=== PATIENT | male | born 1945 | race Caucasian/White ===

== ENCOUNTER → 2018-01-10 17:39 | Outpatient (CLI) | payer MEDICARE, MEDICAID, SELFPAY ==
--- NOTE | 2018-01-10 | DI.MRI.S_ITS ---
PROCEDURE: MR LUMBAR SPINE WO/W CON INDICATIONS: BACK PAIN TECHNIQUE: Noncontrast sagittal T1 spin echo and T2 fast spin echo, sagittal STIR, axial T1 and T2 fast spin echo through the lumbar spine. In cases with scoliosis, additional coronal T2 fast spin echo may be performed. After the administration of contrast, sagittal and axial T1 spin echo with fat saturation through the lumbar spine. COMPARISON: None. FINDINGS: Image quality: Excellent. Alignment and curvature: No plain films are available for comparison, for numbering purposes. Thus, for the purposes of this examination, 5 lumbar type vertebral bodies will be presumed, with a transitional element at S1, as denoted on the montage panel. This should be confirmed and correlated with plain films, prior to any lumbar spinal intervention. Marrow: Marrow is of normal overall signal. No acute vertebral body compression fractures. No suspicious marrow enhancement. There is a nonenhancing septated cystic focus within the right posterior L4 vertebral body. There is mild reactive signal within the endplates adjacent to theL3-L4, L4-L5, and L5-S1 intervertebral discs. Spinal cord: Conus medullaris terminates at the L1-L2 disc space level. Visualized spinal cord demonstrates normal signal, without suspicious enhancement. Paraspinous soft tissues: No paravertebral masses or abnormal enhancement. L1-L2: Mild facet hypertrophy. No significant canal, nor foraminal stenosis. L2-L3: Mild facet hypertrophy. No significant canal, nor foraminal stenosis. L3-L4: Mild disc height loss and desiccation. Mild diffuse disc bulge with superimposed left far lateral disc protrusion. Moderate facet hypertrophy. Mild epidural lipomatosis. There is moderate canal stenosis. There is mild left greater than right foraminal stenosis. L4-L5: Periarticular cyst protrudes medially from the right facet joint measuring 8 mm, contributing to canal stenosis. Moderate facet and ligament flavum hypertrophy bilaterally. Mild disc height loss and desiccation. Mild diffuse disc bulge. There is overall mild to moderate canal stenosis. Mild bilateral foraminal stenosis. L5-S1: Moderate disc height loss and desiccation. Mild diffuse disc bulge/osteophyte. Mild canal stenosis. Moderate left and severe right foraminal stenosis with mild flattening deformity of the right L5 nerve root within the neural foramen. IMPRESSION: 1. 5 lumbar type vertebral bodies with a transitional element at S1 were presumed for the current report. Plain films of the lumbar spine are recommended for confirmation, prior to any lumbar spinal intervention. 2. Multilevel degenerative disc and facet disease, as well as ligament flavum hypertrophy and epidural lipomatosis. 3. Mild to moderate multilevel canal stenoses. 4. Multilevel foraminal stenoses, worst at L5-S1 on the right, where there is mild flattening deformity of the right L5 nerve root within the neural foramen. Recommend correlation with clinical symptoms to ascertain relevance of this finding. Dictated by: Kayla Alcaraz M.D. on 01/11/2018 at 8:29 Approved by: Kayla Alcaraz M.D. on 01/11/2018 at 8:36
== END ==
PROVIDERS: PCP Internal Medicine; Visit Provider Internal Medicine
DX: M54.5 Low back pain (principal); M51.36 Other intervertebral disc degeneration, lumbar region; M51.37 Other intervertebral disc degeneration, lumbosacral region; E88.2 Lipomatosis, not elsewhere classified; M48.061 Spinal stenosis, lumbar region without neurogenic claudication; M48.07 Spinal stenosis, lumbosacral region
CPT/HCPCS: 72158; A9579